=== PATIENT | female | born 1980 | race African-American/Black ===

== ENCOUNTER → 2019-03-11 | Outpatient (CLI) | payer OTHER | LOC: MHCPAIN 10:03 | DX: M47.817 Spondylosis without myelopathy or radiculopathy, lumbosacral region (principal); M54.16 Radiculopathy, lumbar region | CPT/HCPCS: G0463 ==

== ENCOUNTER 2020-02-20 07:33 | Day surgery (SDC) | payer OTHER ==
[2020-02-20] VITALS (8 sets, daily range): BP systolic 133–165; BP diastolic 78–93; PULSE 53–72; TEMP 98.9
[~2020-02-20] VITALS: Ht 162.6 cm; Wt 90.5 kg
[2020-02-20] MEDS ORDERED: EFFEXOR XR75 MG/CAP PO (07:56)
[2020-02-20] MEDS ORDERED: COLESTID 1GM1 G PO (07:57)
[2020-02-20] MEDS ORDERED: PRIL40 PO (07:58)
[2020-02-20] MEDS ORDERED: PAMELOR 25MG25 MG PO (07:58)
[2020-02-20] MEDS ORDERED: CARAFATE 1GM1 G PO (07:58)
[2020-02-20] MEDS ORDERED: LOTREL 5 MG-401 CAP PO (07:58)
== END 2020-02-20 12:15 | disposition home or self-care (01) ==
LOC: SDCO 07:33
DX: R10.11 Right upper quadrant pain (principal); Z79.82 Long term (current) use of aspirin; Z91.040 Latex allergy status; Z88.1 Allergy status to other antibiotic agents; Z88.8 Allergy status to other drugs, medicaments and biological substances; Z88.6 Allergy status to analgesic agent; Z88.0 Allergy status to penicillin; K21.9 Gastro-esophageal reflux disease without esophagitis; F41.9 Anxiety disorder, unspecified; I10 Essential (primary) hypertension; K58.9 Irritable bowel syndrome, unspecified; E66.9 Obesity, unspecified; Z90.49 Acquired absence of other specified parts of digestive tract; Z87.891 Personal history of nicotine dependence; Z68.36 Body mass index [BMI] 36.0-36.9, adult; Z20.828 Contact with and (suspected) exposure to other viral communicable diseases
CPT/HCPCS: C1769; J2405; J2704; J3010; J7120; Q9967